=== PATIENT | male | born 1970 | race Caucasian/White ===

== ENCOUNTER 2021-01-20 02:41 | Observation (INO) | payer BC ==
[~2021-01-20] VITALS: Ht 167.6 cm; Wt 102.1 kg
[2021-01-20] MEDS ORDERED: SODIUM CHLORIDE 0.9% 1000ML 1,000 ML ONE (03:40)
[2021-01-20] MEDS ORDERED: ASPIRIN 81 MG CHEW TAB PO ONE (04:00)
[2021-01-20] MEDS ORDERED: ASPIRIN 325 MG TAB ONE (04:27)
[2021-01-20] MEDS ORDERED: DICLOFENAC SODI50 MG PO (05:03)
[2021-01-20] MEDS ORDERED: ATENOLOL50 MG PO (05:03)
[2021-01-20] MEDS ORDERED: ACETAMINOPHEN 325 MG TAB PO PRN (08:30)
[2021-01-20] MEDS ORDERED: ONDANSETRON HCL INJ 2MG/ML 2ML 2 MG/ML VIAL IV PRN (08:30)
[2021-01-20] MEDS: ATENOLOL 50 MG TAB PO SCH ×2 (08:57→09:06)
[2021-01-20] MEDS ORDERED: ASPIRIN 81 MG ENTERIC COATED PO SCH (09:00)
[2021-01-20 12:15] VITALS: BP 152/93
[2021-01-20 16:11] VITALS: BP 151/100
[2021-01-20 17:07] VITALS: BP 151/100
[2021-01-20 17:10] VITALS: BP 151/100
[2021-01-20] MEDS ORDERED: ASPIRIN EC81 MG PO (18:35)
== END 2021-01-20 20:05 | disposition home or self-care (01) ==
LOC: FSED 03:31 → ERHOLD 04:00 → MED/SURG3 11:49
PROVIDERS: ADMIT Internal Medicine; ATTEND Internal Medicine
DX: G93.40 Encephalopathy, unspecified (principal); I10 Essential (primary) hypertension; E66.9 Obesity, unspecified; R41.0 Disorientation, unspecified; Z68.36 Body mass index [BMI] 36.0-36.9, adult; Z20.822 Contact with and (suspected) exposure to COVID-19
CPT/HCPCS: 70450; 70551; 71045; 80053; 80307; 81003; 82553; 84484; 85025; 93005; 99284; G0378; J7030; U0002

== ENCOUNTER 2024-05-17 17:45 | Emergency (ER) | payer BC ==
[~2024-05-17] VITALS: Ht 167.6 cm; Wt 102.1 kg
[~2024-05-17 17:45] MED LIST: ASPIRIN EC81 MG PO; ATENOLOL50 MG PO; DICLOFENAC SODI50 MG PO
[2024-05-17 18:50] VITALS: TEMP 97.9
[2024-05-17] MEDS: MECLIZINE HCL 12.5 MG TAB PO ONE (18:53)
[2024-05-17 19:02] LABS: BASOPHILS # (AUTO) 0.1 (0.0-0.1); BASOPHILS % 0.6 % (0.0-1.0); EOSINOPHILS # (AUTO) 0.2 (0.0-0.4); EOSINOPHILS % 1.9 % (0.0-6.0); HEMATOCRIT 49.7 % (38.2-49.6); HEMOGLOBIN 17.5 g/dL (14.0-18.0); LYMPHOCYTES % 24.8 % (18.0-39.1); MEAN CORPUSCULAR HEMOGLOBIN 30.7 pg (28-32); MEAN CORPUSCULAR HGB CONC 35.2 g/dL (31-35); MEAN CORPUSCULAR VOLUME 87.2 fL (81-99); MONOCYTES # (AUTO) 0.5 (0.2-0.8); MONOCYTES % 6.4 % (4.4-11.3); NEUTROPHILS # (AUTO) 5.3 (2.1-6.9); NEUTROPHILS % 65.8 % (38.7-80.0); PLATELET COUNT 236 x10e3/uL (140-360); RED CELL DISTRIBUTION WIDTH 12.3 % (11.7-14.4); WHITE BLOOD COUNT 8.08 x10e3/uL (4.8-10.8)
[2024-05-17 19:19] LABS: ALBUMIN 4.5 g/dL (3.5-5.0); ALBUMIN/GLOBULIN RATIO 1.4 (0.8-2.0); ANION GAP 17.7 mmol/L (8-16); BILIRUBIN,TOTAL 1.3 mg/dL (0.2-1.2); CALCIUM 9.9 mg/dL (8.4-10.2); CREATININE, SERUM 1.07 mg/dL (0.72-1.25); POTASSIUM 3.7 mmol/L (3.5-5.1); TOTAL PROTEIN 7.7 g/dL (6.5-8.1)
[2024-05-17] MEDS ORDERED: SODIUM CHLORIDE 0.9% 100 ML ONE (19:41)
[2024-05-17] MEDS ORDERED: IOPAMIDOL 370 MG/ML 100 ML INFUS..BTL INJ ONE (19:41)
[2024-05-17 21:08] VITALS: PULSE 59; RESP 14
[2024-05-17] MEDS: HYDRALAZINE HCL 20 MG/ML VIAL IV STA (21:13)
[2024-05-17 21:21] LABS: AMPHETAMINES SCREEN,URINE NEGATIVE (NEGATIVE); BENZODIAZEPINES SCREEN,URINE NEGATIVE (NEGATIVE); CANNABINOIDS SCREEN,URINE POSITIVE (NEGATIVE); COCAINE SCREEN,URINE NEGATIVE (NEGATIVE); METHADONE SCREEN, URINE NEGATIVE (NEGATIVE); OPIATES SCREEN,URINE NEGATIVE (NEGATIVE); PHENCYCLIDINE SCREEN,URINE NEGATIVE (NEGATIVE)
[2024-05-17] MEDS ORDERED: ANTIVERT25 M1 PO (21:41)
[2024-05-17 21:52] VITALS: BP 152/90; PULSE 75; RESP 15; TEMP 98.3; O2SAT 100
== END 2024-05-17 21:58 | disposition home or self-care (01) ==
LOC: ER 18:31
DX: R42 Dizziness and giddiness (principal); I10 Essential (primary) hypertension; M19.09 Primary osteoarthritis, other specified site
CPT/HCPCS: 36415; 70496; 70498; 71045; 80053; 80307; 80320; 84484; 85025; 93005; 99284; J0360; J7050; J8597; Q9967